=== PATIENT | female | born 1935 | race African-American/Black ===

== ENCOUNTER 2017-01-31 17:37 | Emergency (ER) | payer MEDICARE, MEDICAID ==
[~2017-01-31] VITALS: Ht 149.9 cm; Wt 45.4 kg
[~2017-01-31 17:37] MED LIST: AMLODIPINE BESYL5 MG; ATORVASTATIN CA20 MG; BACTROBAN NASAL1 GM NASAL; DONEPEZIL HCL10 MG; GABAPENTIN300 MG; LOSARTAN-HCTZ1 EACH; NAMENDA10 MG; NITROSTAT0.4 M1; OMEPRAZOLE40 M1; PROAIR HFA8.5 GM; SYNTHROID125 MCG
[2017-01-31 17:55] VITALS: BP 126/71
[2017-01-31] MEDS ORDERED: ASPIR 8181 MG ORAL (17:56)
[2017-01-31] MEDS ORDERED: SPIRIVA18 MCG INH (17:56)
[2017-01-31] MEDS ORDERED: PEPCID AC10 MG PO (17:56)
[2017-01-31] MEDS ORDERED: GABAPENTIN100 MG ORAL (17:56)
[2017-01-31] MEDS ORDERED: ADVAIR 250-501 EACH INH (17:56)
[2017-01-31] MEDS ORDERED: Lidocaine 1% MPF 10mg/ml 5ml ONE (18:02)
[2017-01-31] MEDS ORDERED: Bacitracin Oint UD TOPIC ONE ×2 (18:02→18:15)
[2017-01-31] MEDS ORDERED: Lidocaine 1% MPF 10mg/ml 5ml INJ ONE (18:15)
[2017-01-31] MEDS ORDERED: BACITRACIN1 APPLIC TOPIC (18:36)
[2017-01-31] MEDS ORDERED: CEPHALEXIN500 MG ORAL (18:36)
[2017-01-31] MEDS ORDERED: TYLENOL EXTRA500 MG ORAL (18:43)
--- NOTE | 2017-01-31 20:53 | Emergency Room Report ---
History of Present Illness General Chief Complaint: Skin Rash/Abscess Source: Family Member, Medical Record Present Illness HPI The patient is an 81-year-old female with a history of dementia brought in by patrol lady for an infection of the right fourth finger. He patrol lady first noticed this 1 week prior and has been worsening. The patient patrol lady could not remember any trauma to the finger. Pain is described as an 8/10 dull ache it is worse with touch. Pain does not radiate. Patient denies any numbness or tingling. The patient denies biting her fingernails. Patient denies any other symptoms including fever, chills Allergies: Coded Allergies: PENICILLINS (Verified Allergy, 03/04/14) Patient History Past Medical History: see triage record Pertinent Family History: none Reviewed Nursing Documentation: PMH: Agreed, PSxH: Agreed Nursing Documentation-PMH Hx Hypertension: Yes Hx Asthma: Yes Review of Systems All Other Systems: negative except mentioned in HPI Physical Exam Vital Signs Date Time Temp Pulse Resp B/P Pulse Ox O2 Delivery O2 Flow Rate FiO2 01/31/17 17:46 98.6 100 16 126/71 97 Room Air Sp02 EP Interpretation: reviewed, normal General Appearance: no apparent distress, alert, GCS 15, non-toxic Head: normocephalic, atraumatic Eyes: bilateral eye PERRL, bilateral eye normal inspection Musculoskeletal: back normal, gait/station normal, normal range of motion Neurologic: alert, oriented x3, responsive, motor strength/tone normal, sensory intact, speech normal Psychiatric: judgement/insight normal, mood/affect normal, no suicidal/ homicidal ideation, other - forgetful Skin: other - R 4th finger: edema and fluctuance to distal end Lymphatic: no adenopathy Procedures Incision and Drainage Incision and Drainage : Consent: Verbal Site: R 4th finger Blade Size: 11 I & D Procedure: betadine prep, sterile drapes applied, sterile dressing applied Wound Location: upper extremity Wound's Depth, Shape: superficial Wound Length (cm): 2 Wound Explored: contaminated Anesthesia: 1% Lidocaine Volume Anesthetic (ccs): 4 Splint Applied?: No Sling Applied?: No Patient Tolerated: Well Complications: None Medical Decision Making PA Attestation Dr. Hodges is my supervising physician. Patient management was discussed with my supervising physician Diagnostic Impression: Primary Impression: Felmeena of finger ER Course The patient is an 81-year-old female with an infection of the right fourth finger Differential diagnosis considered: Felon, paronychia, sprain PE: afebrile. NAD Right hand: There is fluctuance edema to the distal fourth digit. TTP. SILT. There is visible purulent material deep to the tissue Betadine prep was used to clean the skin and surrounding area. One percent lidocaine without epinephrine was used for digital block. A #11 blade was used to make an incision at the center of fluctuance. Once the incision was made, purulent material was expressed with blood. The wound was then cleaned and bacitracin with sterile dressing applied. The patient is discharged home with a prescription for Tylenol, Keflex, and bacitracin. ER precautions are given and the patient will follow up with PMD Last Vital Signs Date Time Temp Pulse Resp B/P Pulse Ox O2 Delivery O2 Flow Rate FiO2 01/31/17 18:45 98.6 112 16 143/75 97 Room Air Status: improved Disposition: HOME, SELF-CARE Condition: Improved Scripts Acetaminophen* (TYLENOL EXTRA STRENGTH*) 500 Mg Tablet 500 MG ORAL Q8H Y for Prn Headache/Temp > 101, #30 TAB 0 Refills Prov: KRYSTA STEIN P.A. 01/31/17 Bacitracin (Bacitracin Zinc) 15 Gm Oint...g. 1 APPLIC TOPIC TID, #15 GM Prov: TERRELLANKRYSTA P.A. 01/31/17 Cephalexin* (KEFLEX*) 500 Mg Capsule 500 MG ORAL EVERY 6 HOURS, #28 CAP Prov: KRYSTA STEIN P.A. 01/31/17 Referrals: NOT CHOSEN IPA/MD,REFERRING (PCP) Patient Instructions: Fingertip Infection Additional Instructions: I discussed my findings with the patient. All questions and concerns have been answered. Treatment and medication compliance have been addressed. I advised the patient that they need to follow up with PMD in 3-5 days. Return to ED if symptoms worsen, new symptoms arise, or if needed for any reason. Patient verbalized understanding of discharge instructions. KRYSTA STEIN Jan 31, 2017 20:53
== END 2017-01-31 18:50 | disposition home or self-care (01) ==
LOC: EMR 18:16
DX: L03.011 Cellulitis of right finger (principal); I10 Essential (primary) hypertension; J45.909 Unspecified asthma, uncomplicated; Z88.0 Allergy status to penicillin
CPT/HCPCS: 10060

== ENCOUNTER 2017-05-14 16:49 | Emergency (ER) | payer MEDICARE, MEDICAID ==
[~2017-05-14] VITALS: Ht 149.9 cm; Wt 38.6 kg
[~2017-05-14 16:49] MED LIST changes: +ADVAIR 250-501 EACH INH; +ASPIR 8181 MG ORAL; +BACITRACIN1 APPLIC TOPIC; +CEPHALEXIN500 MG ORAL; +GABAPENTIN100 MG ORAL; +PEPCID AC10 MG PO; +SPIRIVA18 MCG INH; +TYLENOL EXTRA500 MG ORAL
--- NOTE | 2017-05-14 17:12 | Emergency Room Report ---
History of Present Illness General Chief Complaint: Pain Source: Patient Present Illness HPI 81-year-old female presents emergency department complaining of rash to the bilateral hands with 6/10 in severity tenderness. She states she was previously prescribed cream she does not recall the name of medications. She states that she has had this rash intermittently for many years. She denies new medications. She denies lesions elsewhere on the body. Pt denies nausea, vomiting, fevers, chills, headache, dizziness, abdominal pain. Patient also reports midline low back pain described as 5/10 in severity which is chronic in nature and she has had for over 4 years. Patient reports history of spinal surgery. She denies history of,, fall, neoplastic disease or incontinence. Denies numbness tingling or loss of sensation or gross motor movements of the extremities, incontinence of bowel or bladder. Denies CP, Palpitations, LOC, AMS , dizziness, Changes in Vision, Sensation, paresthesias, or a sudden severe headache. Allergies: Coded Allergies: PENICILLINS (Verified Allergy, 03/04/14) Patient History Past Medical History: see triage record Past Surgical History: none Pertinent Family History: none Last Menstrual Period: na Now: No Immunizations: UTD Reviewed Nursing Documentation: PMH: Agreed, PSxH: Agreed Nursing Documentation-PMH Past Medical History: No History, Except For Hx Hypertension: Yes Hx Asthma: Yes Review of Systems All Other Systems: negative except mentioned in HPI Physical Exam Vital Signs Date Time Temp Pulse Resp B/P Pulse Ox O2 Delivery O2 Flow Rate FiO2 05/14/17 16:53 97.9 104 20 116/64 96 Room Air Sp02 EP Interpretation: reviewed, normal General Appearance: no apparent distress, alert, GCS 15, non-toxic Head: normocephalic, atraumatic Eyes: bilateral eye PERRL, bilateral eye normal inspection ENT: hearing grossly normal, normal pharynx, no angioedema, normal voice Neck: full range of motion, supple/symm/no masses Respiratory: chest non-tender, lungs clear, normal breath sounds, speaking full sentences Cardiovascular #1: regular rate, rhythm, no edema, normal capillary refill Gastrointestinal: normal bowel sounds, non tender, soft, no guarding, no rebound Rectal: deferred Genitourinary: normal inspection, no CVA tenderness Musculoskeletal: back normal, gait/station normal, normal range of motion, tender - midline lumbar ttp under surgical scar, no erythema, no obvious deformity otherwise. pt has FROm and normal gait, no incontinence. Neurologic: alert, oriented x3, responsive, motor strength/tone normal, sensory intact, cerebellar normal, normal gait, speech normal Psychiatric: judgement/insight normal, memory normal, mood/affect normal Skin: normal color, warm/dry, well hydrated, rash - macerated rash with flaking and dryness to the bilateral palms and posterior hands. no evidence of secondary infeciton at this time. consistent with dyshidrosis, no blistering. Medical Decision Making PA Attestation Dr. branham is my supervising Physician whom patient management has been discussed with. Diagnostic Impression: Primary Impression: Dyshidrotic hand dermatitis Additional Impression: Chronic back pain Qualified Codes: M54.5 - Low back pain; G89.29 - Other chronic pain ER Course 81-year-old female presents emergency department complaining of rash to the bilateral hands with 6/10 in severity tenderness. She states she was previously prescribed cream she does not recall the name of medications. She states that she has had this rash intermittently for many years. She denies new medications. She denies lesions elsewhere on the body. Pt denies nausea, vomiting, fevers, chills, headache, dizziness, abdominal pain. Patient also reports midline low back pain described as 5/10 in severity which is chronic in nature and she has had for over 4 years. Patient reports history of spinal surgery. She denies history of,, fall, neoplastic disease or incontinence.Denies numbness tingling or loss of sensation or gross motor movements of the extremities, incontinence of bowel or bladder. Denies CP, Palpitations. Ddx considered but are not limited to cellulitis, scabies, shingles, varicella, dermatitis, urticaria, eczema, tinea, fracture, strain/spasm, epidural abscess, exacerbation of chronic back pain. Vital signs: are WNL, pt. is afebrile H&PE are most consistent with dyshidrotic dermatitis, and acute exacerbation of chronic back pain. no evidence to suggest infection , or abscess at this time. no trauma or fall. ORDERS: none required at this time, the diagnosis is clinical ED INTERVENTIONS: -Tylenol PO DISCHARGE: At this time pt. is stable for d/c to home. Will provide printed patient care instructions, and any necessary prescriptions. Care plan and follow up instructions have been discussed with the patient prior to discharge. Last Vital Signs Date Time Temp Pulse Resp B/P Pulse Ox O2 Delivery O2 Flow Rate FiO2 05/14/17 16:53 97.9 104 20 116/64 96 Room Air Disposition: HOME, SELF-CARE Condition: Stable Scripts Triamcinolone Acet (Triamcinolone Acetonide) 15 Gm Cream..g. 15 GM APPLIC BID, #15 GM 2 Refills Prov: Ketty Sexton 05/14/17 Acetaminophen* (TYLENOL EXTRA STRENGTH*) 500 Mg Tablet 500 MG ORAL Q6H, #30 TAB 0 Refills Prov: Ketty Sexton 05/14/17 Patient Instructions: Back Pain, Adult, [id number], Eczema Additional Instructions: Take medications as directed. Follow up with PCP in 3-5 days, may require referral to bag making machine operator and or community product specialist. Return sooner to ED if new symptoms occur, or current symptoms become worse. - Please note that this Emergency Department Report was dictated using [employer] line cutter operator technology software, occasionally this can lead to erroneous entry secondary to interpretation by the dictation equipment. Ketty Sexton May 14, 2017 17:12
[2017-05-14] MEDS ORDERED: KENALOG 0.5% CR15 GM APPLIC (17:19)
[2017-05-14] MEDS ORDERED: TYLENOL EXTRA500 MG ORAL (17:19)
[2017-05-14 17:37] VITALS: BP 116/64
[2017-05-14 17:51] VITALS: BP 116/64
== END 2017-05-14 18:04 | disposition home or self-care (01) ==
LOC: EMR 17:31
DX: L30.1 Dyshidrosis [pompholyx] (principal); M54.5 Low back pain; G89.29 Other chronic pain; Z88.0 Allergy status to penicillin; I10 Essential (primary) hypertension
CPT/HCPCS: 99284

== ENCOUNTER 2017-06-26 12:28 | Emergency (ER) | payer MEDICARE, MEDICAID ==
[~2017-06-26] VITALS: Ht 157.5 cm; Wt 61.2 kg
[~2017-06-26 12:28] MED LIST changes: +KENALOG 0.5% CR15 GM APPLIC
--- NOTE | 2017-06-26 13:03 | Emergency Room Report ---
History of Present Illness General Chief Complaint: General Complaint Present Illness HPI 81-year-old female presents to the emergency department with swelling and bruising of the dorsum of the right hand with radiation of swelling up into the forearm times one day. Patient does not recall appreciable trauma or fall. She denies erythema, increased temperature palpation, changes in sensation or pain. Pt. has hx of eczema. Denies numbness tingling or loss of sensation or gross motor movements of the extremities, denies weakness, incontinence of bowel or bladder. Pt had hx of breast cancer years ago, denies previous symptoms of swelling. pt. states she feels fine, and that the symptoms do not bother her, but her son insisted that she be evaluated. Denies CP, Palpitations, LOC, AMS, dizziness, Changes in Vision, Sensation, paresthesias, or a sudden severe headache. Allergies: Coded Allergies: PENICILLINS (Verified Allergy, 03/04/14) Patient History Past Medical History: see triage record Past Surgical History: none Pertinent Family History: none Now: No Reviewed Nursing Documentation: PMH: Agreed, PSxH: Agreed Nursing Documentation-PMH Hx Hypertension: Yes Hx Asthma: Yes Hx Cancer: Yes - BREAST Review of Systems All Other Systems: negative except mentioned in HPI Physical Exam Vital Signs Date Time Temp Pulse Resp B/P Pulse Ox O2 Delivery O2 Flow Rate FiO2 06/26/17 12:44 97.9 83 20 112/61 100 Room Air Sp02 EP Interpretation: reviewed, normal General Appearance: no apparent distress, alert, GCS 15, non-toxic Head: normocephalic, atraumatic Eyes: bilateral eye PERRL, bilateral eye normal inspection ENT: hearing grossly normal, normal pharynx, no angioedema, normal voice Neck: full range of motion, supple/symm/no masses Respiratory: chest non-tender, lungs clear, normal breath sounds, speaking full sentences Cardiovascular #1: regular rate, rhythm, no edema Cardiovascular #2: 2+ radial (R), 2+ radial (L) Musculoskeletal: back normal, gait/station normal, normal range of motion, non- tender, swelling - right hand and forearm., tender - mild ttp to the dorsum of the right hand localized to area where contusion is noted, no obvious deformity other reza. Neurologic: alert, oriented x3, responsive, motor strength/tone normal, sensory intact, normal gait, speech normal, other - no motor weakness, equal manager banking strength. Psychiatric: judgement/insight normal, memory normal, mood/affect normal Skin: normal color, warm/dry, well hydrated, rash - eczema of bilateral hands- dryness, scaling, and improved from last evaluation. Lymphatic: no adenopathy Medical Decision Making PA Attestation Dr. Fowler is my supervising Physician whom patient management has been discussed with. Diagnostic Impression: Primary Impression: Lymph edema Additional Impressions: Eczema of hand Contusion Qualified Codes: S60.221A - Contusion of right hand, initial encounter ER Course 81-year-old female presents to the emergency department with swelling and bruising of the dorsum of the right hand with radiation of swelling up into the forearm times one day. Patient does not recall appreciable trauma or fall. She denies erythema, increased temperature palpation, changes in sensation or pain. Pt. has hx of eczema. Denies numbness tingling or loss of sensation or gross motor movements of the extremities, denies weakness, incontinence of bowel or bladder. Pt had hx of breast cancer years ago, denies previous symptoms of swelling. pt. states she feels fine, and that the symptoms do not bother her, but her son insisted that she be evaluated. Denies CP, Palpitations , LOC, AMS, dizziness, Changes in Vision, Sensation, paresthesias, or a sudden severe headache. Ddx considered but are not limited to Fracture, dislocation, contusion, Sprain/ Strain/Spasm, lymphedema, DVT Vital signs: are WNL, pt. is afebrile H&PE are most consistent with musculoskeletal injury due to bruising to dorsum of the hand, will perform imaging to r/o fractures/dislocations. - PE not consistent with infection or circulatory compromise. ORDERS: - X-ray Right hand 3 views - negative for fx, Dislocation, or significant soft tissue injury, per preliminary read in ED by Dr. Fowler - interpretation is scribed by PA. ED INTERVENTIONS: - none required at this time. - Pt. also requests refill of triamcinolone cream for eczema. of bilateral hands. DISCHARGE: At this time pt. is stable for d/c to home. Will provide printed patient care instructions, and any necessary prescriptions. Care plan and follow up instructions have been discussed with the patient prior to discharge. Last Vital Signs Date Time Temp Pulse Resp B/P Pulse Ox O2 Delivery O2 Flow Rate FiO2 06/26/17 12:44 97.9 83 20 112/61 100 Room Air Disposition: HOME, SELF-CARE Condition: Stable Scripts Triamcinolone Acet (Triamcinolone Acetonide) 15 Gm Cream..g. 1 APPLIC APPLIC BID, #15 GM 2 Refills Prov: Ketty Sexton 06/26/17 Patient Instructions: Lymphedema Additional Instructions: Take medications as directed. Follow up with a Primary Care Provider in 3-5 days, even if your symptoms have resolved. --Please review list of primary care clinics, if you do not already have a primary care provider Return sooner to ED if new symptoms occur, or current symptoms become worse. - Please note that this Emergency Department Report was dictated using [employer] administrative assistant technology software, occasionally this can lead to erroneous entry secondary to interpretation by the dictation equipment. Ketty Sexton Jun 26, 2017 13:03
[2017-06-26] MEDS ORDERED: KENALOG 0.025%15 GM APPLIC (13:31)
[2017-06-26 13:36] VITALS: BP 119/59
--- NOTE | 2017-06-26 14:58 | Diagnostic Imaging Report ---
Indications: Right hand pain and swelling Technique: 3 views right hand. Findings: Comparison: None Soft tissues are diffusely swollen. No fracture, dislocation, joint space widening , lytic destruction, periosteal reaction , soft tissue foreign body/gas, or other acute changes are identified. Multiple interphalangeal joints are narrowed with marginal osteophyte formation. IMPRESSION: Diffuse soft tissue swelling, nonspecific No other evidence of acute abnormality of the right hand Multifocal osteoarthritis.
== END 2017-06-26 13:36 | disposition home or self-care (01) ==
LOC: EMR 13:35
DX: I89.0 Lymphedema, not elsewhere classified (principal); L30.9 Dermatitis, unspecified; S60.221A Contusion of right hand, initial encounter; X58.XXXA Exposure to other specified factors, initial encounter; Y92.89 Other specified places as the place of occurrence of the external cause; M19.041 Primary osteoarthritis, right hand; I10 Essential (primary) hypertension; J45.909 Unspecified asthma, uncomplicated; Z85.3 Personal history of malignant neoplasm of breast; Z88.0 Allergy status to penicillin
CPT/HCPCS: 99283